=== PATIENT | male | born 1990 | race Caucasian/White ===

== ENCOUNTER → 2019-07-29 08:57 | Outpatient (CLI) | payer OTHER, SELFPAY ==
--- NOTE | 2019-07-29 09:02 | XR_ITS ---
PROCEDURE: XR SHOULDER LT MIN 2V CLINICAL INDICATION: left shoulder pain the COMPARISON: No exams were available for comparison FINDINGS: No fracture or dislocation. No significant arthritic change. No subacromial stenosis. No lytic or blastic change IMPRESSION: Negative left shoulder Dictated by: Escobar Jackson MD 07/29/2019 09:32 Electronically signed by Escobar Jackson MD in [place] 07/29/2019 09:32
== END ==
PROVIDERS: PCP Emergency Medicine; Visit Provider Orthopaedic Surgery
DX: M25.512 Pain in left shoulder (principal)
CPT/HCPCS: 73030

== ENCOUNTER 2023-02-09 10:35 | Emergency (ER) | payer OTHER, SELFPAY ==
[2023-02-09 10:36] VITALS: BP 120/77; PULSE 88; RESP 18; TEMP 36.4; O2SAT 99; BMI 23.6
--- NOTE | 2023-02-09 10:52 | HMH.EDGENADL ---
Discharge Plan Disposition Patient Disposition: Home, Self-Care Prescriptions Prescriptions: New sulfamethoxazole-trimethoprim [Bactrim DS] 800-160 mg tablet 1 tab PO BID 10 Days Qty: 20 0RF cephalexin 500 mg capsule 500 mg PO QID 10 Days Qty: 40 0RF No Action buprenorphine-naloxone 8-2 mg tablet, sublingual SUBLINGUAL Patient Comments: PLACE 2 TABLETS UNDER THE TONGUE ONCE DAILY prednisone 20 mg tablet 20 mg PO BID 5 Days Qty: 10 0RF naproxen 500 mg tablet 500 mg PO BID 30 Days Qty: 60 0RF Referrals Follow up/Referrals: Yahir Willis MD [Staff Physician] - See instructions (Once your pilonidal cyst infection is improved please follow-up for evaluation for possible surgery to illuminate the sinus tract so that you do not continue to have recurrent disease.) Activity Restrictions/Add. Instructions Additional Instructions/Restrictions: Return to the emergency department in 2 to 3 days if you are not showing signs of improvement. Clinical Impressions Clinical Impression: Infected pilonidal cyst, Reactive lymphadenopathy Instructions Patient Instructions: DI for Acute Abdominal Pain Discharge ED Provider: Sudhakar Ng General Adult HPI General Chief complaint: Abdominal Pain Stated complaint: abd pain Time Seen by Provider: 02/09/23 10:37 Mode of Arrival: Ambulatory Source of Information: Patient Limitations: No Limitations Description of Symptoms (Recalled from ER Triage Doc. by RN): has a cyst above butt crack that is oozing pus and then he has a knot in the groin area that became pain two days ago but has been there for awhile, denies fever History of Present Illness HPI narrative: 32-year-old male with a history of pilonidal cysts with regular recurrence presents today with drainage from the cystic areas as well as a knot in the right groin. States that the cyst has been draining for the last 1 week and the knot he noticed over the last 2 days. States it is painful in nature no fevers or chills no other symptoms. He is never seen a surgeon for sinus tract removal. Related Data Home Medications Medication Instructions Recorded Confirmed buprenorphine 8 mg-naloxone 2 mg sublingual 07/09/19 07/29/19 sublingual tablet Previous Rx's Medication Instructions Recorded naproxen 500 mg tablet 500 mg PO BID 30 days #60 tabs 07/09/19 prednisone 20 mg tablet 20 mg PO BID 5 days #10 tabs 07/09/19 cephalexin 500 mg capsule 500 mg PO QID 10 days #40 caps 02/09/23 sulfamethoxazole 800 1 tab PO BID 10 days #20 tabs 02/09/23 mg-trimethoprim 160 mg tablet (Bactrim DS) Allergies Allergy/AdvReac Type Severity Reaction Status Date / Time No Known Allergies Allergy Verified 07/29/19 09:37 [facility] Disclaimer: The information contained in this section may have been updated after the patient was seen, as this information can be updated by other users. Social History Smoking Status: Current every day smoker alcohol intake: never substance use type: former substance user and marijuana current occupational status: employed Travel in the last 8 weeks: None ROS Obtained: Yes All systems reviewed & no additional complaints except as documented Physical Exam General General appearance: alert Respiratory Respiratory exam: Present normal lung sounds bilaterally; Absent respiratory distress Cardiovascular Cardiovascular exam: Present regular rate; Absent tachycardia Abdominal Exam Abdominal exam: Present other (Buttock there is an area of active purulent drainage at the superior aspect of his buttock area in the central midline, there is no significant surrounding erythema or fluctuant drainage) exam: Present other (Right inguinal region there is a 2 x 2 centimeter area of tenderness and lymphadenopathy in the right groin this is nonreducible very tender to the touch no overlying erythema or flexion) Neurological Exam Neurological exam: Present a
[2023-02-09 10:58] VITALS: BP 120/77; PULSE 80; RESP 18; TEMP 36.4; O2SAT 100
== END 2023-02-09 10:59 | disposition home or self-care (01) ==
PROVIDERS: Emergency Provider Student in an Organized Health Care Education/Training Program
DX: L05.91 Pilonidal cyst without abscess (principal); L03.317 Cellulitis of buttock; F17.200 Nicotine dependence, unspecified, uncomplicated
CPT/HCPCS: 99284

== ENCOUNTER 2024-04-14 18:05 | Emergency (ER) | payer SELFPAY ==
[2024-04-14 18:07] VITALS: BP 140/94; PULSE 103; RESP 20; TEMP 36.9; O2SAT 98; BMI 23.6
[2024-04-14 18:38] VITALS: BP 140/94; PULSE 106; RESP 18; O2SAT 99
--- NOTE | 2024-04-14 18:54 | PC.NURSE ---
Dr. Mott at bedside
--- NOTE | 2024-04-14 19:19 | ED_ITS ---
Discharge Plan Disposition Patient Disposition: Home, Self-Care Prescriptions Prescriptions: New amoxicillin-pot clavulanate 875-125 mg tablet 1 tab PO BID 10 Days Qty: 20 1RF chlorhexidine gluconate [Peridex] 0.12 % mouthwash 15 ml mucous membrane BID Qty: 1500 1RF No Action buprenorphine-naloxone 8-2 mg tablet, sublingual SUBLINGUAL Patient Comments: PLACE 2 TABLETS UNDER THE TONGUE ONCE DAILY prednisone 20 mg tablet 20 mg PO BID 5 Days Qty: 10 0RF naproxen 500 mg tablet 500 mg PO BID 30 Days Qty: 60 0RF sulfamethoxazole-trimethoprim [Bactrim DS] 800-160 mg tablet 1 tab PO BID 10 Days Qty: 20 0RF cephalexin 500 mg capsule 500 mg PO QID 10 Days Qty: 40 0RF Referrals Follow up/Referrals: Provider,Referral, MD [Primary Care Provider] - See instructions Activity Restrictions/Add. Instructions Additional Instructions/Restrictions: Call your family doctor to establish care for this visit to the emergency department and schedule follow-up within 48 hours to ensure improvement. If you have any worsening of your condition or any other concerning signs or symptoms, return to the emergency department or your primary care doctor for further evaluation. Case management will contact you to help see if can set up dental insurance. Antibiotic twice daily for 10 days. Peridex twice daily. Clinical Impressions Clinical Impression: Dental infection Print Language Print Language: Macedonian Discharge ED Provider: David Mott General Adult HPI General Chief complaint: Dental/Oral Stated complaint: facial swelling, infection Time Seen by Provider: 04/14/24 18:41 Mode of Arrival: Family Vehicle Source of Information: Patient and Spouse Limitations: No Limitations Description of Symptoms (Recalled from ER Triage Doc. by RN): Pt c/o left side facial swelling, pain, and known poor dentition. States that he was scheduled to have all his teeth pulled next week but his insurance denied the procedure. He is taking left-over Ciproflaxcin ABX (this AM) and tylenol & motrin (1400). States he feels he is having trouble swallowing d/t the swelling. States he is using topical lidocaine/oral-gel/vanilla mix to his gums for pain relief. History of Present Illness HPI narrative: Please note that above description of symptoms, in this electronic medical record under categorization of recalled from ER triage doctor by RN are reflective of an initial nursing assessment, however, is not reflective of my full history and physical exam that was personally taken and clarified. Consequentially, this preceding description of symptoms, which may include the patient's categorized chief complaint in the EMR, do not reflect my personal clinical impression, and the ultimate description of history of present illness and patient stated complaints should be deferred to this section of the note. Unless stated otherwise or congruent with this section of the note, additional signs, symptoms, or incongruence should be interpreted as inaccurate with my clinical impression. Related Data Home Medications ?Medication ?Instructions ?Recorded ?Confirmed buprenorphine 8 mg-naloxone 2 mg sublingual 07/09/19 07/29/19 sublingual tablet Previous Rx's ?Medication ?Instructions ?Recorded naproxen 500 mg tablet 500 mg PO BID 30 days #60 tabs 07/09/19 prednisone 20 mg tablet 20 mg PO BID 5 days #10 tabs 07/09/19 cephalexin 500 mg capsule 500 mg PO QID 10 days #40 caps 02/09/23 sulfamethoxazole 800 1 tab PO BID 10 days #20 tabs 02/09/23 mg-trimethoprim 160 mg tablet (Bactrim DS) amoxicillin 875 mg-potassium 1 tab PO BID 10 days #20 tabs 04/14/24 clavulanate 125 mg tablet chlorhexidine gluconate 0.12 % 15 ml mucous membrane BID #1,500 mL 04/14/24 mouthwash (Peridex) Allergies Allergy/AdvReac Type Severity Reaction Status Date / Time No Known Allergies Allergy Verified 07/29/19 09:37 [facility] Disclaimer: The information contained in this section may have been updated after the patient was seen, as this information can be updated by other users. Social History Smoking Status: Current every day smoker alcohol intake: never substance use type: former substance user and marijuana current occupational status: employed Travel in the last 8 weeks: None Other Medical History Have you received the Pneumonia Vaccine: No ROS Obtained: Yes All systems reviewed & no additional complaints except as documented Physical Exam General General appearance: alert Head Head exam: atraumatic and normocephalic Eye Eye exam: Present normal appearance, PERRL and EOMI ENT ENT exam: Present other (Per MDM) Neck Neck exam: Present normal inspection, full ROM and trachea midline Respiratory Respiratory exam: Absent respiratory distress, wheezes, stridor, accessory muscle use or prolonged expiratory phase Cardiovascular Cardiovascular exam: Present other (Pulses equal symmetric in upper and lower extremities) Abdominal Exam Abdominal exam: Present soft; Absent distention, tenderness or pulsatile mass Extremities Exam Extremities exam: Absent edema Neurological Exam Neurological exam: Present alert, oriented X3 and CN II-XII intact; Absent motor sensory deficit Skin Skin exam: Present warm and dry; Absent diaphoresis or erythema Medical Decision Making Medical Records Medical records reviewed: Yes I reviewed the patient's medical records. Screening: Per USPSTF and CDC recommendations, given the prevalence of disease in our region, it is our hospital?s policy to screen for HIV and viral Hepatitis for all patients aged 18 and over and those with ongoing risk factors. Steve Inquiry Pt receiving controlled substance: No Steve was queried for this patient: No Vital Signs: 04/14/24 18:07 04/14/24 18:38 Temperature 98.5 F Temperature Source Oral Pulse Rate 106 H Pulse Rate [Right] 103 H Respiratory Rate 20 18 Blood Pressure 140/94 H Blood Pressure [Right Arm] 140/94 H Blood Pressure Mean 104 Blood Pressure Mean [Right Arm] 109 Blood Pressure Source [Right Arm] Automatic Cuff 02 Sat by Pulse Oximetry 98 99 Oxygen Delivery Method Room Air Orders (Tests/Meds): ED MEDICATIONS Generic Name Dose Route Start Last Admin Trade Name Freq PRN Reason Stop Dose Admin Amoxicillin/Clavulanate Potassium 1 each 04/14/24 19:20 04/14/24 19:22 Amoxicillin/Clavulanate Potassium 875/125mg Tablet PO 04/14/24 19:21 1 each ONCE ONE Administration ORDERS Category Date Time Status HIV (1&2) Antibody Rapid Stat Lab 04/14/24 18:52 Ordered Hep C Ab with Reflex to RNA Stat Lab 04/14/24 18:52 Ordered Medical Decision Narrative: This is a 33-year-old male history of dental caries necessitating dental extraction (has not received yet) presenting with facial swelling. States that this started 4 days prior to this visit. He states that he was post have his teeth extracted in February, lost his dental insurance at that time. Is supposed to get it next month in April. States that his face started swelling on the right side, right side went down, now swelling on the left side. No fevers, chills, nausea, vomiting, difficulty breathing or swallowing. Came for further evaluation. On arrival, patient appears uncomfortable, but not clinically ill. Hypertensive, mildly tachycardic. Afebrile. Numerous dental caries. External facial swelling bilateral sides of the face, left greater than right. He states this left side started swelling today. No evidence of tonsillitis, exudate, pharyngeal erythema, uvular deviation, palatal swelling, trismus, external neck swelling, submental induration, dental abscess, angioedema, or other abnormal tg pharyngeal findings. No lymphadenopathy, stridor, etc. Differential includes abscess, cellulitis, gingivitis, among oth ers. Patient given Augmentin here. Peridex rinse and Augmentin sent to the pharmacy. Case management was consulted for help with insurance, given necessity of extraction. Because patient at baseline without signs or symptoms of clinical decompensation, deemed appropriate for discharge. Results were relayed to patient who voiced understanding and were agreeable to outpatient management and follow up. I discussed my clinical impression with patient and answered all questions. At this time, the evidence for any other entities in the differential is insufficient to warrant any further testing or ED observation. This was explained as well. Advisory was given that persistent or worsening symptoms require further evaluation. I confirmed the understanding of this discussion. Blue Leather Sorter disclaimer Much of this encounter note is an electronic sap data analyst spoken language to printed text. Electronic sap data analyst of the spoken language may permit errors. Although I have reviewed the note, some errors may still exist. Critical Care Critical Care Time Critical Care Time: No
[2024-04-14] MEDS: AMOXICILLIN/CLAVULANATE POTASSIUM 875/125MG TABLET 1 EACH PO (19:22)
[2024-04-14 19:37] VITALS: BP 136/86; PULSE 93; RESP 18; TEMP 36.9; O2SAT 99
--- NOTE | 2024-04-15 07:38 | CARE MANAGER ---
Received care management consult for no insurance. Forwarded information to financial counselor.
== END 2024-04-14 19:45 | disposition home or self-care (01) ==
PROVIDERS: Emergency Provider Emergency Medicine
DX: K04.7 Periapical abscess without sinus (principal); R22.0 Localized swelling, mass and lump, head
CPT/HCPCS: 99283